=== PATIENT | female | born 1990 | race Two or more races ===

== ENCOUNTER 2017-01-16 18:53 | Emergency (ER) | payer SELFPAY ==
[2017-01-16 19:01] VITALS: BP 130/81; BMI 25.7
--- NOTE | 2017-01-16 19:51 | DR.GENAD ---
HPI - PCP Primary Care Physician: nfd - Complaint/Symptoms Chief Complaint Doctors Comments: Patient states that two years she was injured on the job while using a staple gum a staple was shot into the left distal medial forearm. She was sent to a neruologist two weeks for evaluation of chronic pain in the left upper extremity. The neurologist did not find any abnormality according to patient. Patient states that her pcc wants to do a MRI but workman compensation collin not authorize it. The neurologist recommended that she see an orthopedic Chief Complaint:: pt c/o pain that goes from lt side of neck down lt arm pt states " when i wake up in the mornings my lt side hurts from neck down too lt foot." - Source History Provided: Patient - Mode of Arrival Mode of Arrival: Ambulatory - Timing Onset of Chief Complaint: 12/05/16 PMH - PMH Past Medical History: No Past Surgical History: No - Family History History of Family Medical Conditions: No - Social History Alcohol Use: None Do you use any recreational Drugs:: No Lives With: Family Lives Where: Home - infectious screening In the last 2 months have you had wt loss of >10#?: NO Have you had fever, night sweats or hemotysis?: No Have you traveled outside the country in the last 6 months?: No Isolation: Standard ROS - Review of Systems Constitutional: No Symptoms Reported, Diaphoresis Eyes: No Symptoms Reported ENTM: No Symptoms Reported Respiratoy: No Symptoms Reported Cardiovascular: No Symptoms Reported Gastrointestinal/Abdominal: No Symptoms Reported Genitourinary: No Symptoms Reported Neurological: No Symptoms Reported Musculoskeletal: No Symptoms Reported, Left, Forearm, Wrist Integumentary: No Symptoms Reported Hematologic/Lymphatic: No Symptoms Reported Endocrine: No Symptoms Reported Psychiatric: No Symptoms Reported All Other Systems: Reviewed and Negative PE - Vital Signs Vitals: Temperature 98.6 F Pulse Rate 91 Respiratory Rate 18 Blood Pressure 130/81 O2 Sat by Pulse Oximetry 100 - General Limitations: No Limitations General Appearance: Alert, In No Apparent Distress - Head Head Exam: Normal Inspection, Atraumatic - Eyes Eye exam: Normal Appearance, PERRL, EOMI - ENT ENT Exam: Normal Exam External Ear Exam: Normal External Inspection TM/Canal Exam: Bilateral Normal Nose Exam: Normal Nose Exam Mouth Exam: Normal Inspection Throat Exam: Normal Inspection - Neck Neck Exam: Normal Inspection, Full ROM - Chest Chest Inspection: Normal Inspection - Respiratory Respiratory Exam: Normal Lung Sounds Bilat Respiratory Exam: Bilateral Clear to Auscultation - Cardiovascular Cardiovascular Exam: Regular Rate, Normal Rhythm - Abdominal Exam Abdominal Exam: Normal Inspection, Normal Bowel Sounds Abdominal Tenderness: negative: RUQ, RLQ, LUQ, LLQ, Epigastrium, Suprapubic, Diffuse, Mild, Moderate, Severe, Other - Extremities Extremities Exam: Normal Inspection, Full ROM - Back Back Exam: Normal Inspection - Neurologic Neurological Exam: Alert, Oriented X3, CN II-XII Intact - Psychiatric Psychiatric Exam: Normal Affect, Normal Mood, Depressed - Skin Skin Exam: Warm, Dry, Intact, Normal Color Course - Reevaluation 1st: Unchanged ROR - XRAY XRAY Interpreted by: Radiologist (Shoulder/Cervical spine: no abnormality) - Diagnosis Discharge Problem: Neuropathy - Discharge Plan Condition: Stable - Follow ups/Referrals Follow ups/Referrals: NFD,None [Primary Care Provider] - 3 days - Instructions
--- NOTE | 2017-01-16 22:08 | RAD ---
HISTORY: Nontraumatic shoulder pain Study: 3 views of the left shoulder. Comparison: None Findings: No acute fractures or dislocations. The glenohumeral articulation is normal in its appearance. No g ross soft tissue abnormalities. The acromioclavicular joint is normal in appearance. IMPRESSION: 1. No acute abnormality of the left shoulder. Reported By:
--- NOTE | 2017-01-16 22:09 | RAD ---
HISTORY: Neck pain Study: 3 views of the cervical spine. Comparison: None Findings: The cervical spine demonstrate normal alignment from the craniocervical junction to the level of T1. Disc spaces are maintained. The vertebral body heights are normal. No prevertebral soft tissue swe lling can be identified. The odontoid appears intact. The lateral masses of C1 align with the body of C2. IMPRESSION: 1. Unremarkable examination of the cervical spine. Reported By:
== END 2017-01-16 22:46 | disposition home or self-care (01) ==
LOC: ER 19:17
DX: N28.89 Other specified disorders of kidney and ureter (principal)
CPT/HCPCS: 72040; 73030; 99282

== ENCOUNTER 2020-08-19 11:03 | Inpatient (IN) ==
[2020-08-19] MEDS ORDERED: REGLAN INJ 10 MG VIAL IVP PRN (11:06)
[2020-08-19] MEDS ORDERED: PHENERGAN INJ 25 MG IM PRN ×2 (11:06→15:49)
[2020-08-19] MEDS ORDERED: PITOCIN IVP ONE (11:06)
[2020-08-19] MEDS ORDERED: D5LR 1L W PITOCIN 10 UNITS/L 10 UNITS/1,000 ML BAG IV PRN (11:06)
[2020-08-19] MEDS ORDERED: PITOCIN ONE (11:30)
[2020-08-19] MEDS ORDERED: BETADINE SOLN ONE (11:30)
[2020-08-19] MEDS ORDERED: D5 1/2 NS 1000 ML 1,000 ML IV ONE (11:30)
[2020-08-19] MEDS ORDERED: D5LR 1L W PITOCIN 10 UNITS/L 10 UNITS/1,000 ML BAG IV ONE (11:31)
[2020-08-19] MEDS ORDERED: D5 1/2 NS 1L W PITOCIN 20 UNITS/L 20 UNITS/1,000 ML BAG IV ONE (11:31)
[2020-08-19] MEDS ORDERED: D5 1/2 NS 1000 ML 1,000 ML IV SCH (12:00)
[2020-08-19 12:01] LABS: BASOPHILS % (AUTO) 0.3 % (0.2-1.0); EOSINOPHILS # (AUTO) 0.1 x10^3/uL (0.0-0.2); EOSINOPHILS % (AUTO) 0.8 % (0.9-2.9); HEMATOCRIT 39.7 % (36.0-47.0); HEMOGLOBIN 13.4 g/dL (12.0-16.0); LYMPHOCYTES # (AUTO) 1.9 X10^3/uL (1.3-2.9); LYMPHOCYTES % (AUTO) 17.6 % (21.0-51.0); MEAN CORPUSCULAR HEMOGLOBIN 30.4 pg (27.0-34.0); MEAN CORPUSCULAR HGB CONC 33.8 g/dL (33.0-35.0); MEAN CORPUSCULAR VOLUME 89.9 fL (80.0-100.0); MEAN PLATELET VOLUME 9.6 fL (7.4-11.0); MONOCYTES # (AUTO) 0.6 x10^3/uL (0.3-0.8); MONOCYTES % (AUTO) 5.1 % (0.0-13.0); NEUTROPHILS # (AUTO) 8.2 x10^3/uL (2.2-4.8); NEUTROPHILS % (AUTO) 76.2 % (42.0-75.0); PLATELET COUNT 188 X10^3/uL (150.0-450.0); RED BLOOD COUNT 4.42 X10^6/uL (3.5-5.4); RED CELL DISTRIBUTION WIDTH 14.1 % (11.6-16.5); WHITE BLOOD COUNT 10.8 X10^3/uL (3.6-10.0)
[2020-08-19 12:02] LABS: BLOOD UREA NITROGEN 11 mg/dL (7-18); CALCIUM 9.6 mg/dL (8.5-10.1); CARBON DIOXIDE 23.1 mmol/L (21-32); CHLORIDE 99 mmol/L (98-107); CREATININE 0.66 mg/dL (0.55-1.02); SODIUM 136 mmol/L (136-145); eGFR NON BLACK RACES > 60 (>60)
[2020-08-19 12:17] LABS: BILIRUBIN,URINE NEGATIVE (NEGATIVE); BLOOD/HEMOGLOBIN,URINE NEGATIVE (NEGATIVE); GLUCOSE, URINE NEGATIVE (NEGATIVE); KETONES,URINE 2+ (NEGATIVE); LEUKOCYTE ESTERASE ,URINE 1+ (NEGATIVE); NITRITES,URINE NEGATIVE (NEGATIVE); PROTEIN,URINE 2+ (NEGATIVE); UROBILINOGEN,URINE NORMAL (NORMAL)
[2020-08-19 12:28] LABS: AMORPHOUS SEDIMENT,UR 1+ /HPF (NEGATIVE); APPEARANCE,URINE CLEAR (CLEAR); BACTERIA,URINE TRACE /HPF (NEGATIVE); COLOR,URINE YELLOW (YELLOW); RBC,URINE NONE SEEN /HPF (0-3); SQUAMOUS EPITHELIAL CELL,UR RARE /HPF (NEGATIVE)
[2020-08-19] MEDS ORDERED: STADOL INJ ONE (13:32)
[2020-08-19] MEDS ORDERED: MOTRIN TAB 800 MG PO PRN (15:49)
[2020-08-19] MEDS ORDERED: D5 1/2 NS 1000 ML 1,000 ML with PITOCIN 20 UNITS IV SCH ×2 (16:00)
[2020-08-19] MEDS ORDERED: AMBIEN PO PRN (16:30)
[2020-08-19] MEDS ORDERED: ADACEL or BOOSTRIX TDaP VACCINE IM ONE (16:30)
[2020-08-19] MEDS ORDERED: DERMOPLAST PAIN RELIEF SPRAY TOP PRN (16:30)
[2020-08-19] MEDS ORDERED: MILK OF MAGNESIA PO PRN (16:30)
[2020-08-20 06:45] LABS: HEMATOCRIT 36.8 % (36.0-47.0); HEMOGLOBIN 12.2 g/dL (12.0-16.0)
[2020-08-20] MEDS ORDERED: PRENATAL PLUS PO SCH (09:00)
[2020-08-20 17:31] VITALS: BP 133/60
== END 2020-08-20 17:30 | disposition home or self-care (01) | DRG 807 ==
LOC: LD 11:03 → MED/SURG 16:28
PROVIDERS: ADMIT Obstetrics & Gynecology Obstetrics; ATTEND Obstetrics & Gynecology Obstetrics
DX: Z20.828 Contact with and (suspected) exposure to other viral communicable diseases; O80 Encounter for full-term uncomplicated delivery; Z11.8 Encounter for screening for other infectious and parasitic diseases; Z3A.38 38 weeks gestation of pregnancy; Z37.0 Single live birth